=== PATIENT | male | born 1980 | race Two or more races ===

== ENCOUNTER 2017-03-07 21:51 | Emergency (ER) | payer OTHER ==
[~2017-03-07] VITALS: Ht 180.3 cm; Wt 59.0 kg
[2017-03-07 22:15] VITALS: BP 103/69
[2017-03-08] MEDS ORDERED: KETOROLAC TROMETH 30 MG/ML 1ML VIAL IM ONE (01:00)
[2017-03-08] MEDS ORDERED: HYDROcodone-ACET 10/325MG TAB PO ONE (01:00)
== END 2017-03-08 01:51 | disposition home or self-care (01) ==
LOC: ER 21:51
DX: S62.336A Displaced fracture of neck of fifth metacarpal bone, right hand, initial encounter for closed fracture (principal); F12.10 Cannabis abuse, uncomplicated; W22.01XA Walked into wall, initial encounter; Y93.89 Activity, other specified; Y99.8 Other external cause status; Y92.89 Other specified places as the place of occurrence of the external cause
CPT/HCPCS: 29125; 73130; 96372; 99284; J1885

== ENCOUNTER 2017-10-07 23:20 | Inpatient (IN) | payer MEDICAID, OTHER ==
[~2017-10-07] VITALS: Ht 180.3 cm; Wt 50.2 kg
[2017-10-08 00:54] LABS: Basophils # (auto) 0.1 uL; Basophils % (auto) 0.4 % (0.0-2.0); Eosinophils # (auto) 0 uL; Hematocrit 41.9 % (41.0-53.0); Hemoglobin 14.2 g/dL (13.5-17.5); Lymphocytes # (auto) 1.4 uL; Lymphocytes % (auto) 6.7 % (10.0-50.0); Mean Corpuscular Hemoglobin 30.5 pg (28.0-32.0); Mean Corpuscular Hgb Conc. 33.9 g/dL (32.0-36.0); Mean Corpuscular Volume 89.9 fL (80.0-100.0); Monocytes # (auto) 2.2 uL; Monocytes % (auto) 10.7 % (0.0-12.0); Neutrophils # (auto) 17.3 uL; Neutrophils % (auto) 82.2 % (37.0-80.0); Platelet Count (auto) 232 10^3/uL (140-450); Red Blood Cells 4.66 10^6/uL (4.5-5.90); Red Cell Distribution Width 14.2 % (11.8-14.3)
[2017-10-08 01:08] LABS: Albumin 3.1 g/dL (3.4-5.0); BUN/Creatinine Ratio 28.9; Calcium 7.8 mg/dL (8.5-10.1)
[2017-10-08 01:10] LABS: Bilirubin, Total 0.8 mg/dL (0.2-1.0); INR 1.18 (0.9-1.15); Partial Thromboplastin Time 28.5 sec (23.78-33.04); Prothrombin Time 12.5 sec (9.27-12.13); Total Protein 6.4 g/dL (6.4-8.2)
[2017-10-08 01:11] LABS: Potassium 2.6 mmol/L (3.5-5.1)
[2017-10-08] MEDS ORDERED: ONDANSETRON HCL 4 MG/2 ML VIAL IV ONE (01:15)
[2017-10-08] MEDS ORDERED: PANTOPRAZOLE 40 MG/10 ML VIAL IV ONE ×2 (01:15→08:00)
[2017-10-08] MEDS ORDERED: POTASSIUM CHL 20 Meq TABLET PO ONE ×2 (01:15→13:00)
[2017-10-08] MEDS ORDERED: SODIUM CHLORIDE 0.9% 1,000 ML IV ONE ×2 (01:15→02:00)
[2017-10-08] MEDS ORDERED: KETOROLAC TROMETH 30 MG/ML 1ML VIAL IV ONE (01:15)
[2017-10-08] MEDS ORDERED: traMADol HCL 50 MG TAB PO ONE (01:30)
[2017-10-08] MEDS ORDERED: POTASSIUM CHL 10% (20 MEQ/15ML) 15ml ORAL SOLN PO ONE (01:45)
[2017-10-08] MEDS: POTASSIUM CHL 20MEQ/100ML 100 ML IV SCH ×4 (01:52→10:58)
[2017-10-08] MEDS ORDERED: LEVOFLOXACIN 750MG 150 ML IV ONE (02:15)
[2017-10-08 03:55] LABS: Urine Bacteria FEW /hpf (None Seen); Urine Blood Negative /uL (Negative); Urine Specific Gravity 1.026 (1.001-1.035); Urine WBC 3 /hpf (0 - 3)
[2017-10-08 04:04] LABS: Alcohol, Urine < 3.0 mg/dL (0-5); Amphetamine Screen, Urine POSITIVE (NEGATIVE); Barbiturate Scree,Urine NEGATIVE (NEGATIVE); Benzodiazephine Screen, Urine NEGATIVE (NEGATIVE); Cocaine Screen, Urine NEGATIVE (NEGATIVE); Opiate Scree,Urine NEGATIVE (NEGATIVE); Phencyclidine Screen, Urine NEGATIVE (NEGATIVE)
[2017-10-08 04:11] LABS: Cannabinoid Screen, Urine POSITIVE (NEGATIVE)
[2017-10-08] MEDS ORDERED: SODIUM CHLORIDE 0.9% 1,000 ML IV SCH (07:52)
[2017-10-08] MEDS ORDERED: PROMETHAZINE HCL 25 MG/ML 1ML IV PRN (08:00)
[2017-10-08] MEDS ORDERED: NITROGLYCERIN 0.4 MG SL TAB SL PRN (08:00)
[2017-10-08] MEDS ORDERED: TEMAZEPAM 15 MG CAP PO PRN (08:00)
[2017-10-08] MEDS ORDERED: ACETAMINOPHEN 500 MG TAB PO PRN (08:00)
[2017-10-08] MEDS ORDERED: MORPHINE SULFATE 8mg/ml INJ SDV IV PRN ×2 (08:00)
[2017-10-08] MEDS ORDERED: cefTRIAXone 1GM/10ml IVPUSH 10 ML IV ONE (08:00)
[2017-10-08] MEDS ORDERED: IOHEXOL 300 MG/ML 100ML BOTTLE IJ ONE (08:01)
[2017-10-08] MEDS: cefTRIAXone 1GM/10ml IVPUSH 10 ML IV SCH (08:26)
[2017-10-08] MEDS: metroNIDAZOLE 500MG/100ML 100 ML IV SCH ×3 (08:46→20:59)
[2017-10-08] MEDS: SOD CHL 0.9%/ KCL 40MEQ 1,000 ML IV SCH ×2 (10:58→18:20)
[2017-10-08] MEDS ORDERED: OMEP20TA PO (13:25)
[2017-10-08 14:36] VITALS: BP 109/67
[2017-10-08] MEDS: HYDROcodone-ACET 5/325MG TAB PO PRN ×2 (15:58→21:58)
[2017-10-08 17:00] VITALS: BP 102/71
[2017-10-08 20:00] VITALS: BP 99/63
[2017-10-08] MEDS: PANTOPRAZOLE 40 MG TAB PO SCH (21:55)
[2017-10-08 22:00] VITALS: BP 99/63
[2017-10-09] MEDS: metroNIDAZOLE 500MG/100ML 100 ML IV SCH ×2 (02:20→08:44)
[2017-10-09] MEDS: SOD CHL 0.9%/ KCL 40MEQ 1,000 ML IV SCH ×2 (02:31→08:45)
[2017-10-09] MEDS: HYDROcodone-ACET 5/325MG TAB PO PRN (04:52)
[2017-10-09 05:36] VITALS: BP 96/64
[2017-10-09 06:27] LABS: Basophils # (auto) 0.1 uL; Eosinophils # (auto) 0.1 uL; Eosinophils % (auto) 1.3 % (0.0-7.0); Hematocrit 37.2 % (41.0-53.0); Hemoglobin 12.6 g/dL (13.5-17.5); Lymphocytes # (auto) 3.8 uL; Lymphocytes % (auto) 41.4 % (10.0-50.0); Mean Corpuscular Hemoglobin 30.8 pg (28.0-32.0); Mean Corpuscular Volume 90.6 fL (80.0-100.0); Monocytes # (auto) 0.8 uL; Monocytes % (auto) 8.9 % (0.0-12.0); Neutrophils # (auto) 4.3 uL; Neutrophils % (auto) 47.4 % (37.0-80.0); Nucleated Red Blood Cells % 0.1 %; Platelet Count (auto) 207 10^3/uL (140-450); Red Cell Distribution Width 13.9 % (11.8-14.3); White Blood Cell 9.1 10^3/uL (4.4-10.8)
[2017-10-09 06:44] LABS: Potassium 3.8 mmol/L (3.5-5.1)
[2017-10-09 06:52] LABS: Albumin 2.6 g/dL (3.4-5.0); BUN/Creatinine Ratio 18.1
[2017-10-09 07:03] LABS: Bilirubin, Total 0.5 mg/dL (0.2-1.0); Total Protein 5.5 g/dL (6.4-8.2)
[2017-10-09 08:10] VITALS: BP 96/64
[2017-10-09 08:33] VITALS: BP 98/63
[2017-10-09] MEDS: PANTOPRAZOLE 40 MG TAB PO SCH (08:45)
[2017-10-09] MEDS: cefTRIAXone 1GM/10ml IVPUSH 10 ML IV SCH (08:45)
[2017-10-09] MEDS ORDERED: PANTOPRAZOLE 40 MG/10 ML VIAL IV SCH (10:00)
== END 2017-10-09 11:30 | disposition home or self-care (01) | DRG 241 ==
LOC: EDBD 23:20 → ER 23:35 → TELE 23:36 → TELE-WESTW 10-08 13:52
PROVIDERS: ADMIT Nurse Practitioner; ATTEND Internal Medicine
DX: K29.90 Gastroduodenitis, unspecified, without bleeding (principal); R65.10 Systemic inflammatory response syndrome (SIRS) of non-infectious origin without acute organ dysfunction; E44.0 Moderate protein-calorie malnutrition; N28.1 Cyst of kidney, acquired; E87.6 Hypokalemia; F12.10 Cannabis abuse, uncomplicated; G43.A1 Cyclical vomiting, in migraine, intractable; K44.9 Diaphragmatic hernia without obstruction or gangrene
CPT/HCPCS: 36415; 71045; 74177; 80053; 80307; 81001; 82150; 83605; 83690; 84132; 85025; 85610; 85652; 85730; 86141; 87040; 87086; 93005; 96361; 96374; 96375; C9113; J1956; J2405; J3480; J3490